=== PATIENT | female | born 1965 | race Caucasian/White ===

== ENCOUNTER 2023-03-11 07:16 | Day surgery (SDC) | payer BC ==
[~2023-03-11] VITALS: Ht 165.1 cm; Wt 68.1 kg
[2023-03-11] MEDS ORDERED: MULT-1085 PO (07:30)
[2023-03-11] MEDS ORDERED: LIDOcaine 1% 30ml preserv. free vial SQ STA (07:31)
[2023-03-11] MEDS ORDERED: albumin 25% 100mL bottle x 1 IV PRN (07:35)
--- NOTE | 2023-03-11 09:30 | NUR ---
No procedure performed after ultrasound, very minimal fluid.
== END 2023-03-11 09:30 | disposition home or self-care (01) ==
LOC: SSTAY O 07:16
PROVIDERS: ATTEND Radiology Diagnostic Radiology
DX: K70.31 Alcoholic cirrhosis of liver with ascites (principal); Z53.8 Procedure and treatment not carried out for other reasons; Z79.899 Other long term (current) drug therapy
CPT/HCPCS: 76705; A6258

== ENCOUNTER 2025-03-31 15:33 | Outpatient (CLI) | payer BC ==
[~2025-03-31 15:33] MED LIST: MULT-1085 PO
--- NOTE | 2025-03-31 19:32 | RADIOLOGY REPORT ---
EXAM: MR MRI LOWER EXTREMITY LEFT HISTORY: PAIN IN LEFT KNEE COMPARISON: None TECHNIQUE: Multiplanar, multisequence imaging of the left knee was performed without contrast FINDINGS: MEDIAL COMPARTMENT: Intact medial meniscus. No focal chondrosis or subchondral edema. LATERAL COMPARTMENT: Complex tearing of the anterior body of the lateral meniscus likely extending in to the anterior horn. Subchondral edema of the lateral lip of the lateral femoral condyle. PATELLOFEMORAL COMPARTMENT: Focal partial-thickness cartilage fissure of the median ridge. CRUCIATE LIGAMENTS: Complete tear of the anterior cruciate ligament. posterior cruciate ligament is intact. MEDIAL SUPPORTING STRUCTURES: Thickening of the proximal superficial medial collateral ligament. LATERAL SUPPORTING STRUCTURES: Intact iliotibial band, lateral capsular ligament, fibular collateral ligament, popliteus, and biceps femoris tendons EXTENSOR MECHANISM: Intact JOINT SPACE/FLUID: Small knee joint effusion. No intra-articular body. Small Burns's cyst. Inferior dehiscence with fluid extension into the pes anserine bursa BONES: Bone marrow edema of the posterior proximal tibial epiphysis. Kissing bone contusion pattern o f the lateral femoral condyle and posterolateral tibial plateau. No discrete fracture plane. MUSCLES: Normal in signal intensity and morphology NEUROVASCULAR: Unremarkable OTHER: None IMPRESSION: 1. Pivot-shift mechanism of injury with kissing bone contusion pattern of the lateral femoral condyle and posterolateral tibial plateau. Additional bone marrow edema of the medial tibial plateau. 2. Complete anterior cruciate ligament tear. 3. Question complex tear of the anterior horn to anterior body of the lateral meniscus. 4. Small knee joint effusion. Small Burns's cyst. Inferior dehiscence with fluid extension into the p es anserine bursa
== END 2025-03-31 23:59 | disposition home or self-care (01) ==
LOC: MRI 15:33
PROVIDERS: ATTEND Nurse Practitioner Family
DX: S83.512A Sprain of anterior cruciate ligament of left knee, initial encounter (principal); S80.12XA Contusion of left lower leg, initial encounter; S89.82XA Other specified injuries of left lower leg, initial encounter; S70.12XA Contusion of left thigh, initial encounter; M71.22 Synovial cyst of popliteal space [Baker], left knee; M25.462 Effusion, left knee; M25.562 Pain in left knee; M25.362 Other instability, left knee; M23.8X9 Other internal derangements of unspecified knee; R93.7 Abnormal findings on diagnostic imaging of other parts of musculoskeletal system; X58.XXXA Exposure to other specified factors, initial encounter; Y93.89 Activity, other specified; Y92.89 Other specified places as the place of occurrence of the external cause; Y99.8 Other external cause status
CPT/HCPCS: 73721